=== PATIENT | female | born 1965 | race Caucasian/White ===

== ENCOUNTER → 2017-11-21 | Day surgery (SDC) | payer OTHER ==
[~2017-11-21] VITALS: Ht 152.4 cm; Wt 67.1 kg
[~2017-11-21] MED LIST: ACE3 FT; ACET-1966 PO; ATOR20TA22 PO; DESO1TAB40 PO; GLYCOPYRROLATE 0.2MG/ML 1 ML INJ ONE; LIDOCAINE/SOD BICARB 8.4% SYR ID ONE; NORMOSOL R SOLN(*) 1000 ML BAG 1,000 ML IV PRN; PROPOFOL EMUL(*) 10MG/ML 20 ML 20 ML ONE
[2017-11-21 10:31] VITALS: BP 132/85
[2017-11-21 11:42] VITALS: BP 136/86
[2017-11-21 12:00] VITALS: BP 117/81
[2017-11-21 12:15] VITALS: BP 126/81
[2017-11-21 12:18] VITALS: BP 130/90
[2017-11-21 12:19] VITALS: BP 137/97
== END ==
LOC: OR 01:47
PROVIDERS: ATTEND Family Medicine
DX: Z12.11 Encounter for screening for malignant neoplasm of colon (principal)
CPT/HCPCS: 00812; 45378; 81025; J2704; J3490

== ENCOUNTER → 2018-02-19 | Outpatient (CLI) | payer OTHER ==
[~2018-02-19] MED LIST changes: -GLYCOPYRROLATE 0.2MG/ML 1 ML INJ ONE; -LIDOCAINE/SOD BICARB 8.4% SYR ID ONE; -NORMOSOL R SOLN(*) 1000 ML BAG 1,000 ML IV PRN; -PROPOFOL EMUL(*) 10MG/ML 20 ML 20 ML ONE
--- NOTE | 2018-02-20 11:21 | RADIOLOGY IMAGING REPORT ---
FACILITY: [facility] - [place] PATIENT NAME: LELA GAMBOA : [id number] MR: [id number] V: [id number] EXAM DATE: [id number] ORDERING PHYSICIAN: ROB NERI TECHNOLOGIST: Tamy Monroe PROCEDURE:BILATERAL DIGITAL SCREENING MAMMOGRAM WITH CAD ASSISTED INTERPRETATION & 3D TOMOSYNTHESIS COMPARISON:Prior mammograms 01/16/17, 12/09/15, 12/06/14. INDICATIONS:SCREENING FINDINGS: The breasts are heterogeneously dense which may obscure small masses. The parenchymal pattern has remained stable allowing for difference in mammographic technique & patient positioning. There is no demonstration of malignant appearing mass, malignant appearing calcifications or other secondary sign of malignancy in either breast. DIAGNOSTIC CATEGORY 1--NEGATIVE. RECOMMENDATIONS: ROUTINE MAMMOGRAM AND CLINICAL EVALUATION. IMPRESSION: BIRADS 1: Negative. No significant abnormality is seen. Dictated by: Della Nix M.D. on 02/19/2018 at 16:57 Transcribed by: TOM on 02/20/2018 at 8:30 Approved by: Della Nix M.D. on 02/20/2018 at 11:20 [facility]
== END ==
LOC: MAMO 00:42
PROVIDERS: ATTEND Obstetrics & Gynecology
DX: Z12.31 Encounter for screening mammogram for malignant neoplasm of breast (principal)
CPT/HCPCS: 77063; 77067